=== PATIENT | female | born 1940 | race Caucasian/White ===

== ENCOUNTER 2020-09-08 15:07 | Inpatient (IN) | payer MEDICARE, OTHER ==
[~2020-09-08] VITALS: Ht 167.6 cm; Wt 81.6 kg
[~2020-09-08 15:07] MED LIST: CARDIZEM CD240 MG PO; CATAPRES0.2 MG PO; COREG 12.5MG12.5 MG PO; COZAAR100 MG PO; CYMBALTA60 MG PO; LANSOPRAZOLE30 MG PO; LEVOCETIRIZINE D5 MG PO; NEURONTIN 100100 MG PO; NIFEDIPINE ER30 M1 PO; PERCOCET 7.5-31 EACH PO; SYNTHROID 125125 MCG PO; ZOCOR20 MG PO; ZOLOFT50 MG PO
[2020-09-08 16:34] LABS: HEMOGLOBIN 12.1 gm/dl (12.3-15.3); RED BLOOD COUNT 4.48 M/UL (4.00-5.10); WHITE BLOOD COUNT 15.2 K/UL (4.5-11.0)
[2020-09-08] MEDS ORDERED: ALDACTONE 25MG25 MG PO (18:18)
[2020-09-08] MEDS ORDERED: PROTONIX 40 MG40 M1 PO (18:19)
[2020-09-09 03:23] LABS: HEMOGLOBIN 9.7 gm/dl (12.3-15.3); RED BLOOD COUNT 3.68 M/UL (4.00-5.10); WHITE BLOOD COUNT 10.9 K/UL (4.5-11.0)
[2020-09-09 13:54] LABS: HEMOGLOBIN 10.5 gm/dl (12.3-15.3); RED BLOOD COUNT 3.79 M/UL (4.00-5.10)
[2020-09-10 04:16] LABS: HEMOGLOBIN 8.4 gm/dl (12.3-15.3); RED BLOOD COUNT 3.12 M/UL (4.00-5.10); WHITE BLOOD COUNT 10.9 K/UL (4.5-11.0)
--- NOTE | 2020-09-10 06:38 | NUR ---
0630 250ml NS bolus started per MD order.
--- NOTE | 2020-09-11 01:45 | NUR ---
0030 INSTRUCTED AND ENCOURAGED PT ON USE OF INCENTIVE SPIROMETRY. PT ABLE TO GET IT UP TO 1500
[2020-09-11 06:21] LABS: HEMOGLOBIN 7.6 gm/dl (12.3-15.3); RED BLOOD COUNT 2.83 M/UL (4.00-5.10); WHITE BLOOD COUNT 12.2 K/UL (4.5-11.0)
[2020-09-11] MEDS ORDERED: ENOXAPARIN40 MG/0.4 SC (12:40)
== END 2020-09-11 17:55 | disposition home health service (06) | DRG 481 ==
LOC: ER1 15:07 → M/S 17:30 → CDU 17:30 → M/S 18:06
PROVIDERS: Internal Medicine; Orthopaedic Surgery; Physician Assistant; ADMIT Internal Medicine Infectious Disease
PROC: 0QS606Z Reposition Right Upper Femur with Intramedullary Internal Fixation Device, Open Approach (ICD-10-PCS; principal; 2020-09-09 11:15)
PROC: 30233N1 Transfusion of Nonautologous Red Blood Cells into Peripheral Vein, Percutaneous Approach (ICD-10-PCS; 2020-09-11)
DX: S72.141A Displaced intertrochanteric fracture of right femur, initial encounter for closed fracture (principal); D62 Acute posthemorrhagic anemia; W01.0XXA Fall on same level from slipping, tripping and stumbling without subsequent striking against object, initial encounter; Y93.01 Activity, walking, marching and hiking; D72.829 Elevated white blood cell count, unspecified; I12.9 Hypertensive chronic kidney disease with stage 1 through stage 4 chronic kidney disease, or unspecified chronic kidney disease; N18.30 Chronic kidney disease, stage 3 unspecified; E03.9 Hypothyroidism, unspecified; F41.9 Anxiety disorder, unspecified; F32.9 Major depressive disorder, single episode, unspecified; K21.9 Gastro-esophageal reflux disease without esophagitis; M06.9 Rheumatoid arthritis, unspecified; E66.9 Obesity, unspecified; Z68.29 Body mass index [BMI] 29.0-29.9, adult; Y92.010 Kitchen of single-family (private) house as the place of occurrence of the external cause; Z79.890 Hormone replacement therapy; Z79.899 Other long term (current) drug therapy; Z82.49 Family history of ischemic heart disease and other diseases of the circulatory system; Z83.3 Family history of diabetes mellitus
CPT/HCPCS: 36415; 36430; 72170; 73502; 73552; 76000; 80048; 80053; 85025; 85610; 86850; 86900; 86901; 86920; 93005; 96374; 96375; 96376; 97110-GP-CQ; 97116; 97116-GP-CQ; 97161; 97166; 97530; 97535; 99284; C1713; J0360; J0690; J1100; J1650; J2001; J2270; J2405; J2704; J2710; J3010; J3370; J7120; P9016; U0002